=== PATIENT | female | born 1965 | race Caucasian/White ===

== ENCOUNTER → 2017-06-29 | Outpatient (REF) | payer OTHER ==
[2015-12-22 09:28] VITALS: BMI 25.7
[~2017-06-29] MED LIST: ACET-1966 PO; ADV100/50 INH; ALBU8.5H12 IH; ARIP5TAB28 PO; AZE137NAPT NS; BUDE0.5A6 IH; CALC-547 PO; CIT20 PO; CYCL1DRO6 OP; DESO1TAB41 PO; DEXL60CA6 PO; DIA2 PO; DIPH-1 PO; DOXY-179 PO; DUL100/5PT INH; DULO60CA56 PO; EPIN0.3P15 IM; ESTR0.62 PO; ESTR1PAT TD; FLUC150T40 PO; FLUT16SP20 NS; GABA-549 PO; HYDR2TAB4 PO; LEVO-85 PO; LEVO1TAB48 PO; LEVO50TA80 PO; LIB PO; LIDO700A29 TD; LIPA1CAP63 PO; LOR5/325 PO; LORA-630 PO; METH-280 PO; MID PO; MULT-865 PO; MULT9LIQ5 PO; ONDA4TAB PO; ONDA4TAB9 PO; PAN20 PO; PRED-1 PO; PRED20TA6 PO; PRO25 PO; PROM-110 PO; SULF-198 PO; TEST1.25 TOP; TRAM-420 PO; TRAM100T22 PO; TRAZ-156 PO; [UNRECOGNIZED DRUG - OTHER]; flovent inhaler
== END ==
PROVIDERS: ATTEND Family Medicine
DX: R07.0 Pain in throat (principal)
CPT/HCPCS: 87070

== ENCOUNTER 2017-07-09 09:45 | Outpatient (RCR) | payer OTHER ==
[2015-12-22 09:28] VITALS: BMI 25.7
--- NOTE | 2017-05-22 10:55 | PT INITIAL EVALUATION ---
MEDICAL DIAGNOSIS: Achilles Tendonitis of Left Leg TREATMENT DIAGNOSIS: Left Achilles Tendinopathy DATE OF ONSET: 03/22/17 SUBJECTIVE: Sheyla Hathaway (Kate) presents to physical therapy following a 2 month history of Achilles pain and decreased mobility. Pt reported that pain started after she started jogging and doing yoga more and hasn't really got any better since it started. Pain is in the calcaneal tendon and occasionally extends to the bottom of the heel. Pain is rated currently at rest as 3-4/10 but can increase to 7-8/10 with increased activity such as prolonged walking or jogging, yoga, and squatting. Pt reports that pain is better with compression around the ankle like when she wears hiking boots. Pt currently wears orthotics and has for years though reports that she didn't wear them for most of the summer. REHAB PROBLEM LIST: Increased Pain Decreased ROM Decreased Strength Decreased Endurance Decreased Balance Decreased Function Decreased ADL's Decreased Mobility Decreased Gait PREVIOUS MEDICAL HISTORY: See EMR OCCUPATION: athletic instructor OBJECTIVE: Pt has general joint hypermobility with knee hyperextension in static stance. Posture: L foot posture significant for B rear foot valgus (L>R), pronated L mid foot without any presence of arch with WB, and L first digit adduction with bunion formation on MTP joint. ROM: Ankle ROM: DF: L 13, R 30, PF: L 46, R 70, Eversion: L 18, R 35, Inversion, : B 80 degrees. Strength: MMT B Ankles: R 5/5 in all major motions. L: PF/DF: 4/5, Ever/Inv: 3+/ 5 pt unable to hold sustained contraction with pressure. Palpation: Pt is tender to palpation along the medial mid portion Achilles tendon as well as along it's insertion. Small nodule formation is present on mid portion Sensation: Sensation intact to light touch Special Tests: Petersen squeeze test (-) for rupture Mobility: Decreased subtalar mobility on L LE. Gait: Gait significant for decreased push off on L foot with lateral whip for foot clearance. Balance: SLS balance: B 30 seconds each with increased postural sway and foot collapse on L LE. Other Objective Findings: ASSESSMENT: Pt shows signs and symptoms consistent with left Achilles tendinopathy with associated decreased L foot posture. Physical therapy is indicated to correct the above listed deficits to return pt to prior level of function with ADL's and recreational activities. Short Term Goals In 3 weeks pt will increase L ankle ROM to within functional limits for improved mobiltiy with ADL's. In 3 weeks pt will decrease pain to <3/10 with daily ambulation with ADL's. In 6 weeks pt will increase L ankle strength to 5/5 in all major motions for improved function with ADL's and recreational activities. In 6 weeks pt will begin return to running protocol and be independent with HEP for increased functional mobility and prolonged healing with ADL's. Patient's Goals Return to yoga and ADL's without pain and improved motion. PLAN: Patient to be seen for Manual Therapy/STM/MET Strengthening/condition Ice/Heat Range of Motion Ultrasound Stretching Iontophoresis Neuromuscular Re-ed Closed Chain Program Electrical Stim Posture/Body mechanics Gait Trg/Balance Trg Biofeedback Home Exercise Program [facility]./Manual Traction Therapeutic Activities Orthotic eval,cast,adjust 3x/Week for 6 Weeks If you have any questions, comments, or concerns about this report or plan, please contact me at . Thank you, Alicia Gillis, PT, DPT, CLT MTDD
--- NOTE | 2017-07-01 13:33 | PT PLAN OF CARE ---
Physician: Kael Jimenes DO Patient is being seen: 2-3x/Week Therapist: Alicia Gillis, PT, DPT, CLT Medical Diagnosis: Achilles Tendonitis of Left Leg Treatment Diagnosis: Left Achilles Tendinopathy Date of Onset: 03/22/17 Date of Initial Evaluation: 05/22/17 Date patient was last seen: 06/30/17 Number of treatments: 9 Number of cancellations/No shows: 4 INTERVENTIONS: Manual Therapy/STM/MET Strengthening/condition Ice/Heat Range of Motion Ultrasound Stretching Iontophoresis Neuromuscular Re-ed Closed Chain Program Electrical Stim Posture/Body mechanics Gait Trg/Balance Trg Biofeedback Home Exercise Program Mech./Manual Traction Therapeutic Activities Orthotic eval,cast,adjust GOALS: In 3 weeks pt will increase L ankle ROM to within functional limits for improved mobility with ADL's. MET In 3 weeks pt will decrease pain to <3/10 with daily ambulation with ADL's. In 6 weeks pt will increase L ankle strength to 5/5 in all major motions for improved function with ADL's and recreational activities. In 6 weeks pt will begin return to running protocol and be independent with HEP for increased functional mobility and prolonged healing with ADL's. PATIENT'S GOAL: Return to yoga and ADL's without pain and improved motion. 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 However, pt foot posture and mechanics show improvement with good mobility and decreased pain with arch support and corrected hallux valgus. Posture: L foot posture significant for rear foot valgus, pronated mid foot without any presence of arch with WB, and first digit adduction with bunion formation on MTP joint. ROM: Ankle ROM: DF: L 13, R 30, PF: L 46, R 70, Eversion: L 18, R 35, Inversion ,: B 80 degrees. Strength: MMT B Ankles: R 5/5 in all major motions. L: PF/DF: 4/5, Ever/Inv: 3+/ 5 pt unable to hold sustained contraction with pressure. Palpation: Pt is tender to palpation along the medial mid portion Achilles tendon as well as along it's insertion. Special Tests: Petersen squeeze test (-) for rupture If you have any questions or concerns, please feel free to contact me at [phone]. Thank you, Alicia Gillis, PT, DPT, CLT MTDD
--- NOTE | 2017-08-12 10:14 | PT PLAN OF CARE ---
Physician: Kael Jimenes DO Patient is being seen: 2-3x/Week Therapist: Alicia Gillis, PT, DPT, CLT Medical Diagnosis: Achilles Tendonitis of Left Leg Treatment Diagnosis: Left Achilles Tendinopathy Date of Onset: 03/22/17 Date of Initial Evaluation: 05/22/17 Date patient was last seen: 07/11/17 Number of treatments: 13 Number of cancellations/No shows: 6 INTERVENTIONS: Manual Therapy/STM/MET Strengthening/condition Ice/Heat Range of Motion Ultrasound Stretching Iontophoresis Neuromuscular Re-ed Closed Chain Program Electrical Stim Posture/Body mechanics Gait Trg/Balance Trg Biofeedback Home Exercise Program Mech./Manual Traction Therapeutic Activities Orthotic eval,cast,adjust GOALS: In 3 weeks pt will increase L ankle ROM to within functional limits for improved mobility with ADL's. MET In 3 weeks pt will decrease pain to <3/10 with daily ambulation with ADL's. In 6 weeks pt will increase L ankle strength to 5/5 in all major motions for improved function with ADL's and recreational activities. In 6 weeks pt will begin return to running protocol and be independent with HEP for increased functional mobility and prolonged healing with ADL's. PATIENT'S GOAL: Return to yoga and ADL's without pain and improved motion. Status of Patient's Goals: 1/4 Goals MET Patient Compliance: Poor Prognosis: Good Reasons for discharge from therapy: Sheyla is to discharge from physical therapy at this time secondary to poor pt compliance associated with family emergencies and pt preference. At the time of discharge pt had met 1/4 functional goals and was progressing with independent HEP to manage symptoms and progressively load calcaneal tendon. Pt also showed good progress with correction of contributing factors such as decreased strength and poor foot posture with correction decreasing pain status. Pt to continue with independent HEP upon discharge and seek further PT if necessary when personal factors are more conducive. Posture: L foot posture significant for rear foot valgus, pronated mid foot without any presence of arch with WB, and first digit adduction with bunion formation on MTP joint. ROM: Ankle ROM: DF: L 13, R 30, PF: L 46, R 70, Eversion: L 18, R 35, Inversion ,: B 80 degrees. Strength: MMT B Ankles: R 5/5 in all major motions. L: PF/DF: 4/5, Ever/Inv: 4 Palpation: Pt is tender to palpation along the medial mid portion Achilles tendon as well as along it's insertion. Special Tests: Petersen squeeze test (-) for rupture If you have any questions or concerns, please feel free to contact me at [phone]. Thank you, Alicia Gillis, PT, DPT, CLT MTDD
== END 2017-07-09 18:00 | disposition home or self-care (01) ==
LOC: PT 09:45
PROVIDERS: ATTEND Family Medicine
DX: M76.62 Achilles tendinitis, left leg (principal)
CPT/HCPCS: 97162

== ENCOUNTER 2017-08-21 06:23 | Emergency (ER) | payer OTHER ==
[2015-12-22 09:28] VITALS: Wt 68.0 kg
[2017-08-21] MEDS ORDERED: THYR90TA13 PO (06:36)
[2017-08-21 06:57] LABS: PLATELET COUNT, AUTOMATED 397 K/uL (150-450)
--- NOTE | 2017-08-21 07:07 | ER Report ---
History and Physical Time Seen By MD: 07:06 Hx. of Stated Complaint: Pt had surgery on left foot on August 12. Pt feels "weird" today. She started feeling SOB last night and is worried about PE. HPI/ROS CHIEF COMPLAINT: Shortness of breath HISTORY OF PRESENT ILLNESS: Patient is a [age] female who had bunion surgery on August 12 she is now feeling "weird". She is also feeling short of breath that began last evening. Patient has been having shaking ports temperature of 101 at home last evening. She did speak with the on-call orthopedic surgeon who thought she should come to the emergency department for evaluation of possible pulmonary embolism. REVIEW OF SYSTEMS: Constitutional: Shaking, temperature of 101 at home last evening Eyes: No discharge. ENT: No sore throat. Cardiovascular: No chest pain, no palpitations. Respiratory: No cough, no shortness of breath. Gastrointestinal: No abdominal pain, no vomiting. Genitourinary: No hematuria. Musculoskeletal: No back pain. Skin: No rashes. Neurological: No headache. Allergies: Coded Allergies: aspirin (Verified Allergy, Severe, ANAPHYLAXIS, 08/21/17) cefaclor (Verified Allergy, Severe, ANAPHYLAXIS, 08/21/17) ibuprofen (Verified Allergy, Severe, ANAPHYLAXIS, 08/21/17) iron (Verified Allergy, Severe, anaphalaxis by IV, 08/21/17) ketorolac (Verified Allergy, Severe, ANAPHYLAXIS, 08/21/17) montelukast (Verified Allergy, Severe, ANAPHYLAXIS, 08/21/17) warfarin (Verified Allergy, Severe, ANAPHYLAXIS, 08/21/17) latex (Verified Allergy, Intermediate, rash, 08/21/17) morphine (Verified Adverse Reaction, Mild, 08/21/17) Home Meds Active Scripts Tramadol Hcl (TRAMADOL HCL) 50 Mg Tablet, 50-100 MG PO Q6-8H for PAIN, #3 TAB Prov:WALKER GARCIA MD 12/11/15 Promethazine Hcl (PROMETHAZINE HCL) 25 Mg Tablet, 25 MG PO Q6H, #10 TAB Prov:MARQUISE BERMUDEZ NP 09/08/15 Reported Medications Thyroid,Pork (APPLIANCE ASSEMBLER THYROID) 90 Mg Tablet, 90 MG PO QDAY 08/21/17 Duloxetine Hcl (CYMBALTA) 60 Mg Capsule.dr, 60 MG PO QDAY, CAP 2 Refills 12/25/15 TESTOSTERONE 1.62% Topical Gel (ANDROGEL 1.62% Topical Gel) 1.25 Gm Gel.packet, 1 ML TOP 3XW 12/22/15 Epinephrine (EPIPEN 2-FERNY) 0.3 Mg/0.3 Ml Pen.injctr, 0.3 MG IM PRN 12/22/15 Estrogens, Conjugated 0.625 Mg Tab (PREMARIN 0.625 MG TAB) 0.625 Mg Tablet, 0.625 MG PO 3XW 11/10/14 Methocarbamol (METHOCARBAMOL) 750 Mg Tablet, 750 MG PO TID 11/10/14 Estradiol (ESTRADIOL 0.075 MG) 1 Each Patch.tdwk, 1 EACH TD Q7D, PATCH.WK 11/10/14 Mometasone/Formoterol (DULERA 100 MCG/5 MCG INHALER) 13 Gm Inh, 13 GM INH BID Y for SHORTNESS OF BREATH, INH 11/10/14 Dexlansoprazole (DEXILANT) 60 Mg Cap.mp, 60 MG PO QDAY 11/10/14 Fluticasone Propionate (Flonase) 16 Gm [place], 1 ENRRIQUE NS DAILY 03/03/12 Amylase/Lipase/Protease ([place]ar Santos 24,000 Units Capsule) 1 Each Capsule., 1 EACH PO BIDBS 09/20/11 Albuterol Sulfate (Albuterol Sulfate Hfa) 8.5 Gm Hfa.aer.ad, 8.5 GM IH PRN Y for SHORTNESS OF BREATH, 0 Refills 08/07/10 Discontinued Reported Medications Trazodone Hcl (TRAZODONE HCL) 50 Mg Tablet, 25-50 MG PO QHS, 2 Refills 12/25/15 Gabapentin (GABAPENTIN) 300 Mg Capsule, 900 MG PO QHS, CAPSULE 12/22/15 Levothyroxine Sodium (Levothyroxine Sodium) 50 Mcg Tablet, 50 MCG PO DAILY 03/03/12 Discontinued Scripts Budesonide (BUDESONIDE) 0.5 Mg/2 Ml Ampul.neb, 0.5 MG IH DAILY for 30 Days, #30 INH 11 Refills Prov:MARYBETH MIKE JR, MD 06/16/17 Fluconazole (DIFLUCAN) 150 Mg Tablet, 150 MG PO QDAY, #1 TB12 Prov:MARYBETH MIKE JR, MD 04/25/17 Sulfamethoxazole/Trimet 800-160 Mg Tab (BACTRIM DS TABLET) 1 Each Tablet, 1 TAB PO Q12H for 14 Days, #28 TAB Prov:MARYBETH MIKE JR, MD 04/25/17 Prednisone (PREDNISONE) 20 Mg Tablet, 20 MG PO QDAY for 5 Days, #5 TAB Prov:MARYBETH MIKE JR, MD 04/25/17 Past Medical/Surgical History Past medical history for celiac disease, hypothyroidism, fibromyalgia, chronic fatigue syndrome. 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 Appears to be having Reiger's Head: Normocephalic and atraumatic. Eyes: Conjunctival clear, Pupils are equal and reactive to light. Extraocular muscles are intact and symmetrical. Sclera are clear and anicteric. Ears:External canals are clear. Tympanic membranes are clear with normal landmarks and light reflex. Nares: No rhinorrhea or bleeding. Turbinates are pink and moist. Oropharyngeal: Mucous membranes are moist. There is no pharyngeal erythema or exudate. There are no palatal petechiae. Uvula is midline and symmetrical. Neck: Supple, no adenopathy. Cardiovascular: Heart is regular rate and rhythm without audible murmurs, rubs or gallops. Pulmonary: Lungs are clear to auscultation bilaterally. There are no wheezes, rales, or rhonchi. Chest rise is symmetrical Abdomen: Soft, nontender, no guarding or peritoneal signs. Extremities: No gross deformities, No peripheral cyanosis. The surgical dressing on the left lower extremity was removed completely. Wound appears clean dry and intact there is no evidence of bleeding no purulent discharge no evidence of cellulitis. Neuro: Alert and oriented X3, Skin: No rashes, skin is warm dry and well perfused. Medical Decision Making Data Points Result Diagram: 08/21/17 0640 08/21/17 0640 Laboratory Hematology Test 08/21/17 06:40 08/21/17 06:55 Red Blood Count 4.76 M/uL (4.17-5.56) Mean Corpuscular Volume 84.8 fL (80.0-96.0) Mean Corpuscular Hemoglobin 28.9 pg (26.0-33.0) Mean Corpuscular Hemoglobin Concent 34.0 g/dL (32.0-36.0) Red Cell Distribution Width 13.2 % (11.5-14.5) Mean Platelet Volume 7.2 fL (7.2-11.1) Neutrophils (%) (Auto) 71.4 % (39.4-72.5) Lymphocytes (%) (Auto) 15.1 % (17.6-49.6) Monocytes (%) (Auto) 10.4 % (4.1-12.4) Eosinophils (%) (Auto) 2.0 % (0.4-6.7) Basophils (%) (Auto) 1.1 % (0.3-1.4) Nucleated RBC Relative Count (auto) 0.0 /100WBC Neutrophils # (Auto) 5.5 K/uL (2.0-7.4) Lymphocytes # (Auto) 1.2 K/uL (1.3-3.6) Monocytes # (Auto) 0.8 K/uL (0.3-1.0) Eosinophils # (Auto) 0.2 K/uL (0.0-0.5) Basophils # (Auto) 0.1 K/uL (0.0-0.1) Nucleated RBC Absolute Count (auto) 0.00 K/uL D-Dimer Quantitative (PE/DVT) 0.73 ug/ml (0-0.50) Sodium Level 132 mmol/L (137-145) Potassium Level 3.7 mmol/L (3.5-5.0) Chloride Level 99 mmol/L (98-107) Carbon Dioxide Level 22 mmol/L (22-31) Blood Urea Nitrogen 10 mg/dl (7-18) Creatinine 0.80 mg/dl (0.52-1.04) Glomerular Filtration Rate Calc > 60.0 Random Glucose 95 mg/dl (75-110) Calcium Level 8.9 mg/dl (8.4-10.2) Total Bilirubin 0.5 mg/dl (0.2-1.3) Aspartate Amino Transf (AST/SGOT) 109 U/L (0-35) Alanine Aminotransferase (ALT/SGPT) 100 U/L (0-56) Alkaline Phosphatase 129 U/L (0-126) Troponin I < 0.012 ng/ml Total Protein 7.1 gm/dl (6.3-8.2) Albumin 3.9 g/dl (3.5-5.0) Urine Color Straw Urine Clarity Clear Urine pH 7.0 pH (4.8-9.5) Urine Specific [place] 1.005 Urine Protein Negative mg/dL (NEGATIVE) Urine Glucose (UA) Negative mg/dL (NEGATIVE) Urine Ketones Negative mg/dL (NEGATIVE) Urine Blood Negative (NEGATIVE) Urine Nitrite Negative (NEGATIVE) Urine Bilirubin Negative (NEGATIVE) Urine Urobilinogen Negative mg/dL (0.2-1.9) Urine Leukocyte Esterase Negative (NEGATIVE) Urine RBC <1 /HPF (0-2/HPF) Urine WBC None /HPF (0-5/HPF) Urine Squamous Epithelial Cells Many /LPF (</=FEW) Urine Bacteria Few /HPF (NONE-FEW) Urine Mucus None /HPF (NONE-FEW) Chemistry Test 08/21/17 06:40 08/21/17 06:55 White Blood Count 7.7 k/uL (4.5-11.0) Red Blood Count 4.76 M/uL (4.17-5.56) Hemoglobin 13.7 g/dL (12.0-16.0) Hematocrit 40.3 % (34.0-47.0) Mean Corpuscular Volume 84.8 fL (80.0-96.0) Mean Corpuscular Hemoglobin 28.9 pg (26.0-33.0) Mean Corpuscular Hemoglobin Concent 34.0 g/dL (32.0-36.0) Red Cell Distribution Width 13.2 % (11.5-14.5) Platelet Count 397 K/uL (150-450) Mean Platelet Volume 7.2 fL (7.2-11.1) Neutrophils (%) (Auto) 71.4 % (39.4-72.5) Lymphocytes (%) (Auto) 15.1 % (17.6-49.6) Monocytes (%) (Auto) 10.4 % (4.1-12.4) Eosinophils (%) (Auto) 2.0 % (0.4-6.7) Basophils (%) (Auto) 1.1 % (0.3-1.4) Nucleated RBC Relative Count (auto) 0.0 /100WBC Neutrophils # (Auto) 5.5 K/uL (2.0-7.4) Lymphocytes # (Auto) 1.2 K/uL (1.3-3.6) Monocytes # (Auto) 0.8 K/uL (0.3-1.0) Eosinophils # (Auto) 0.2 K/uL (0.0-0.5) Basophils # (Auto) 0.1 K/uL (0.0-0.1) Nucleated RBC Absolute Count (auto) 0.00 K/uL D-Dimer Quantitative (PE/DVT) 0.73 ug/ml (0-0.50) Glomerular Filtration Rate Calc > 60.0 Calcium Level 8.9 mg/dl (8.4-10.2) Total Bilirubin 0.5 mg/dl (0.2-1.3) Aspartate Amino Transf (AST/SGOT) 109 U/L (0-35) Alanine Aminotransferase (ALT/SGPT) 100 U/L (0-56) Alkaline Phosphatase 129 U/L (0-126) Troponin I < 0.012 ng/ml Total Protein 7.1 gm/dl (6.3-8.2) Albumin 3.9 g/dl (3.5-5.0) Urine Color Straw Urine Clarity Clear Urine pH 7.0 pH (4.8-9.5) Urine Specific [place] 1.005 Urine Protein Negative mg/dL (NEGATIVE) Urine Glucose (UA) Negative mg/dL (NEGATIVE) Urine Ketones Negative mg/dL (NEGATIVE) Urine Blood Negative (NEGATIVE) Urine Nitrite Negative (NEGATIVE) Urine Bilirubin Negative (NEGATIVE) Urine Urobilinogen Negative mg/dL (0.2-1.9) Urine Leukocyte Esterase Negative (NEGATIVE) Urine RBC <1 /HPF (0-2/HPF) Urine WBC None /HPF (0-5/HPF) Urine Squamous Epithelial Cells Many /LPF (</=FEW) Urine Bacteria Few /HPF (NONE-FEW) Urine Mucus None /HPF (NONE-FEW) Coagulation Test 08/21/17 06:40 D-Dimer Quantitative (PE/DVT) 0.73 ug/ml Urinalysis Test 08/21/17 06:55 Urine Color Straw Urine Clarity Clear Urine pH 7.0 pH (4.8-9.5) Urine Specific [place] 1.005 Urine Protein Negative mg/dL (NEGATIVE) Urine Glucose (UA) Negative mg/dL (NEGATIVE) Urine Ketones Negative mg/dL (NEGATIVE) Urine Blood Negative (NEGATIVE) Urine Nitrite Negative (NEGATIVE) Urine Bilirubin Negative (NEGATIVE) Urine Urobilinogen Negative mg/dL (0.2-1.9) Urine Leukocyte Esterase Negative (NEGATIVE) Urine RBC <1 /HPF (0-2/HPF) Urine WBC None /HPF (0-5/HPF) Urine Squamous Epithelial Cells Many /LPF (</=FEW) Urine Bacteria Few /HPF (NONE-FEW) Urine Mucus None /HPF (NONE-FEW) EKG/Imaging EKG Interpretation EKG shows normal sinus rhythm with ventricular rate of [address]. [address] segment or T-wave abnormalities Monitor Interpretation: Normal Sinus Rhythm Imaging [place]AC[place] [facility] [place]IENT NAME: Sheyla Hathaway : 1965 MR: [id number] V: [id number] EXAM DATE: ORDERING PHYSICIAN: RIVER LOVETT TECHNOLOGIST: Location: [facility] Patient: Sheyla Hathaway : 1965 Visit/Account:[id number] Date of Sevice: 08/21/2017 Technique: CHEST PA AND LAT HISTORY: short of breath COMPARISON: Chest radiograph report December 11, 2015 Findings: The lungs are clear. No pleural effusion or pneumothorax. The cardiomediastinal silhouette is unremarkable. Impression: 1. No acute cardiopulmonary process. Report Dictated By: Matt Oneill DO at 08/21/2017 8:16 AM Report E-Signed By: Matt Oneill DO at 08/21/2017 8:18 AM WSN:[id number] [place] [facility] [place]IENT NAME: Sheyla Hathaway : 1965 MR: [id number] V: [id number] EXAM DATE: ORDERING PHYSICIAN: JANNET SMITH TECHNOLOGIST: Location: [facility] Patient: Sheyla Hathaway : 1965 Visit/Account:[id number] Date of Sevice: 08/21/2017 EXAMINATION: CT CHEST PULMONARY ANGIOGRAM COMPARISON: None available HISTORY: Shortness of breath. Recent surgery. PROCEDURE: Pulmonary arterial phase imaging of the chest with 75 mL intravenous Isovue 370. Reconstruction of the source data set includes multiplanar 2D in the sagittal and coronal planes, and 3D reconstructed coronal slab MIP series. One of the following dose optimization techniques was utilized in the performance of this exam: Automated exposure control; adjustment of the mA and/ or kV according to the patient's size; or use of an iterative reconstruction technique. Specific details can be referenced in the facility's radiology CT exam operational policy. FINDINGS: Pulmonary vasculature: There is good contrast opacification of the pulmonary arterial system. No pulmonary embolism. Main pulmonary artery size is normal. Cardiac and mediastinum: Cardiac chamber size is normal. No pericardial effusion. No thoracic aortic aneurysm. No thoracic lymph node enlargement. Small hiatal hernia. Lungs and pleura: No focal consolidation or pulmonary nodule. No pneumothorax, pulmonary edema, or pleural effusion. Airways: The central airways are patent. Upper abdomen: Cholecystectomy. Pneumobilia. Osseous structures: Negative. IMPRESSION: 1. No pulmonary embolism or evidence of acute cardiopulmonary disease. 2. Small hiatal hernia. 3. Cholecystectomy and pneumobilia. Unless there is a clinical concern for acute hepatobiliary disease, pneumobilia is likely related to prior instrumentation. Report Dictated By: Anton Crabtree MD at 08/21/2017 8:31 AM Report E-Signed By: Anton Crabtree MD at 08/21/2017 8:44 AM WSN:[id number] ED Course/Re-evaluation Clinical Indication for ER IV: Hydration, IV Access ED Course 08/21/2017 7:37:32 am patient with complaint of shortness of breath. Temperature in the department was 99. Patient does appear to be having some Reiger's. Plan will be blood cultures urine culture, chest x-ray patient are he had a blood work put in for a troponin which is negative d-dimer which is elevated at 0.72. This could be secondary to the patient's recent surgery but also does raise the possibility of pulmonary embolism. Plan at this time will be CT scan to rule out possible pulmonary emboli. 08/21/2017 8:21:04 am the patient's prior bulky Prabhakar dressing was replaced along with a posterior and sugar tong splint Re-evaluation 08/21/2017 9:25:[address] Zarate regarding outpatient work up in the emergency department negative for all signs of infection at this time. Urinalysis is unremarkable chest x-ray was clear surgical incisions look clean dry and intact. Patient's bulky Prabhakar dressing was replaced. Dr. Zarate agrees with that no treatment other than observation at this time and follow up with Dr. Prasad as scheduled Decision to Disposition Date: Aug 21, 2017 Decision to Disposition Time: 09:26 Depart Departure Latest Vital Signs Vital Signs Date Time Temp Pulse Resp B/P (MAP) Pulse Ox O2 Delivery O2 Flow Rate FiO2 08/21/17 09:30 117/87 (97) 08/21/17 09:00 100 89 08/21/17 07:21 99.0 08/21/17 06:30 16 Room Air Impression: Primary Impression: Dyspnea Condition: Improved Referrals: CARLOS TIWARI MD (PCP) Patient Instructions: Dyspnea (ED) Additional Instructions: Follow-up as scheduled with Dr. Prasad; follow up sooner if her symptoms persist or worsen at any time. Problem Qualifiers Primary Impression: Dyspnea Dyspnea type: unspecified Qualified Codes: R06.00 - Dyspnea, unspecified JANNET SMITH MD Aug 21, 2017 07:07
--- NOTE | 2017-08-21 07:08 | EKG ---
FACILITY: [facility] [place] PATIENT NAME: EUGENIE VARGAS : [id number] MR: [id number] V: [id number] EXAM DATE: ORDERING PHYSICIAN: RIVER LOVETT TECHNOLOGIST: JOSE Lopes Reason : SOB Blood Pressure : / mmHG Vent. Rate : 095 BPM Atrial Rate : 095 BPM P-R Int : 120 ms QRS Dur : 090 ms QT Int : 372 ms P-R-T Axes : 035 039 047 degrees QTc Int : 467 ms Normal sinus rhythm Cannot rule out Anterior infarct , age undetermined Abnormal ECG When compared with ECG of 11-DEC-2015 18:53, No significant change was found Confirmed by ANN MARIE NGUYEN ([id number]) on 08/21/2017 8:12:45 AM Referred By: BONY Confirmed By:ANN MARIE NGUYEN
[2017-08-21] MEDS ORDERED: LORazepam 2 MG/ML VIAL IVP ONE (07:35)
[2017-08-21] MEDS ORDERED: IOPAMIDOL 76% 75 ML INFUS BTL 75 ML ONE (07:54)
[2017-08-21] MEDS ORDERED: NS 0.9% 150 ML BAG 150 ML ONE (07:54)
--- NOTE | 2017-08-21 08:22 | RADIOLOGY IMAGING REPORT ---
FACILITY: [facility] PATIENT NAME: Sheyla Hathaway : 1965 MR: [id number] V: [id number] EXAM DATE: ORDERING PHYSICIAN: RIVER LOVETT TECHNOLOGIST: Location: [facility] [place] Patient: Sheyla Hathaway : 1965 Visit/Account:[id number] Date of Sevice: 08/21/2017 Technique: CHEST PA AND LAT HISTORY: short of breath COMPARISON: Chest radiograph report December 11, 2015 Findings: The lungs are clear. No pleural effusion or pneumothorax. The cardiomediastinal silhouett e is unremarkable. Impression: 1. No acute cardiopulmonary process. Report Dictated By: Matt Oneill DO at 08/21/2017 8:16 AM Report E-Signed By: Matt Oneill DO at 08/21/2017 8:18 AM WSN:[id number]
--- NOTE | 2017-08-21 08:50 | RADIOLOGY IMAGING REPORT ---
FACILITY: [facility] - [place] PATIENT NAME: Sheyla Hathaway : 1965 MR: [id number] V: [id number] EXAM DATE: ORDERING PHYSICIAN: JANNET SMITH TECHNOLOGIST: Location: [facility] [place] Patient: Sheyla Hathaway : 1965 Visit/Account:[id number] Date of Sevice: 08/21/2017 EXAMINATION: CT CHEST PULMONARY ANGIOGRAM COMPARISON: None available HISTORY: Shortness of breath. Recent surgery. PROCEDURE: Pulmonary arterial phase imaging of the chest with 75 mL intravenous Isovue 370. Reconstru ction of the source data set includes multiplanar 2D in the sagittal and coronal planes, and 3D recon structed coronal slab MIP series. One of the following dose optimization techniques was utilized in the performance of this exam: Autom ated exposure control; adjustment of the mA and/or kV according to the patient's size; or use of an i terative reconstruction technique. Specific details can be referenced in the facility's radiology C T exam operational policy. FINDINGS: Pulmonary vasculature: There is good contrast opacification of the pulmonary arterial system. No pul monary embolism. Main pulmonary artery size is normal. Cardiac and mediastinum: Cardiac chamber size is normal. No pericardial effusion. No thoracic aorti c aneurysm. No thoracic lymph node enlargement. Small hiatal hernia. Lungs and pleura: No focal consolidation or pulmonary nodule. No pneumothorax, pulmonary edema, or pl eural effusion. Airways: The central airways are patent. Upper abdomen: Cholecystectomy. Pneumobilia. Osseous structures: Negative. IMPRESSION: 1. No pulmonary embolism or evidence of acute cardiopulmonary disease. 2. Small hiatal hernia. 3. Cholecystectomy and pneumobilia. Unless there is a clinical concern for acute hepatobiliary diseas e, pneumobilia is likely related to prior instrumentation. Report Dictated By: Anton Crabtree MD at 08/21/2017 8:31 AM Report E-Signed By: Anton Crabtree MD at 08/21/2017 8:44 AM WSN:[id number]
[2017-08-21 09:30] VITALS: BP 117/87
== END 2017-08-21 09:30 | disposition home or self-care (01) ==
LOC: ER 06:39
DX: R06.02 Shortness of breath (principal)
CPT/HCPCS: 29515; 36415; 71046; 71275; 81001; 84484; 85025; 85379; 87040; 87088; 93005; 96374; 99284; J2060; Q9967; 82040; 82247; 82310; 82374; 82435; 82565; 82947; 84075; 84132; 84155; 84295; 84450; 84460; 84520

== ENCOUNTER → 2017-09-03 | Outpatient (CLI) | payer OTHER ==
[2015-12-22 09:28] VITALS: BMI 25.7
[~2017-09-03] MED LIST changes: +THYR90TA13 PO
[2017-09-03 16:29] LABS: PLATELET COUNT, AUTOMATED 433 K/uL (150-450)
== END ==
LOC: LAB 16:15
PROVIDERS: ATTEND Internal Medicine
DX: J45.50 Severe persistent asthma, uncomplicated (principal)
CPT/HCPCS: 36415; 82785; 85025

== ENCOUNTER → 2017-11-24 | Outpatient (CLI) | payer OTHER ==
[2015-12-22 09:28] VITALS: BMI 25.7
== END ==
LOC: LAB 11:12
PROVIDERS: ATTEND Internal Medicine
DX: G25.81 Restless legs syndrome (principal)
CPT/HCPCS: 36415; 82728; 83540; 83550

== ENCOUNTER → 2018-01-06 | Outpatient (REF) | payer OTHER ==
[2015-12-22 09:28] VITALS: BMI 25.7
[~2018-01-06] MED LIST changes: -TRAZ-156 PO; +TRAZ50TA34 PO
== END ==
LOC: ZZSENDIN 17:12
PROVIDERS: ATTEND Physician Assistant
DX: R10.13 Epigastric pain (principal)
CPT/HCPCS: 82150; 82274; 83540; 83630; 83690; 87338

== ENCOUNTER 2018-01-19 15:30 | Outpatient (RCR) | payer OTHER ==
[2015-12-22 09:28] VITALS: BMI 25.7
--- NOTE | 2017-12-25 15:13 | PT INITIAL EVALUATION ---
MEDICAL DIAGNOSIS: Left Rib Pain TREATMENT DIAGNOSIS: Left Rib Pain and Thoracic Pain DATE OF ONSET: 12/25/17 SUBJECTIVE: Pt reports that this morning when she woke up she suddenly had L lateral rib pain and thoracic spine pain that is really sharp and intense. She thinks she has a rib out of place because that is what it felt like last time it happened. Pt does not rate pain but describes it as both dull and sharp at times and a constant ache. Pain is located from T4-7 and then moves L laterally around the side to the sternum in the front. REHAB PROBLEM LIST: Increased Pain Decreased ROM Decreased Strength Decreased Function Decreased ADL's Decreased Mobility PREVIOUS MEDICAL HISTORY: See EMR OBJECTIVE: ROM: Thoracic ROM: Flexion: increased pain into neck but full ROM, ext: pain throughout but full, L rot: full ROM with increased pain in side, R rot: minimally decreased with pain more in the back of the L side. Palpation: Decreased thoracic mobility throughout with tenderness along rib 5 and posteriorly on rib 6 on the L side with posterior translation of each palpable. Mobility: Repeated thoracic functional screen: flexion & L rotation: increased pain throughout and peripheralization to cervical spine and shoulder, ext: increased pain throughout, R rotation: centralized to T5 level only, but pain moved to both sides in the back. ASSESSMENT: Pt shows signs and symptoms consistent with thoracic and rib dysfunction with muscular guarding. Physical therapy is indicated to address the above listed deficits to improve functional mobility with ADL's. Short Term Goals In 2 weeks pt will centralize thoracic pain to the spine only for improved function with ADL's. In 4 weeks pt will decrease L sided thoracic pain to 0/10 with ADL's. In 4 weeks pt will improve thoracic mobility to full without pain for improved function with ADL's. Patient's Goals Decrease pain. PLAN: Patient to be seen for Manual Therapy/STM/MET Strengthening/condition Ice/Heat Range of Motion Spinal Stabilization Stretching Neuromuscular Re-ed Electrical Stim Posture/Body mechanics Home Exercise Program Mech./Manual Traction Therapeutic Activities 2x/Week for 4 Weeks If you have any questions, comments, or concerns about this report or plan, please contact me at . Thank you, Alicia Gillis, PT, DPT, CLT GABRIELE
== END 2018-01-19 18:00 | disposition home or self-care (01) ==
LOC: PT 15:30
PROVIDERS: ATTEND Family Medicine
DX: R07.81 Pleurodynia (principal); M54.6 Pain in thoracic spine
CPT/HCPCS: 97161

== ENCOUNTER → 2018-03-03 | Outpatient (CLI) | payer OTHER ==
[2015-12-22 09:28] VITALS: BMI 25.7
--- NOTE | 2018-03-03 14:08 | RADIOLOGY IMAGING REPORT ---
FACILITY: [facility] PATIENT NAME: Sheyla Hathaway : 1965 MR: [id number] V: [id number] EXAM DATE: ORDERING PHYSICIAN: ANI PATTON TECHNOLOGIST: Location: [facility] [place] Patient: Sheyla Hathaway : 1965 Visit/Account:[id number] Date of Sevice: 03/03/2018 EXAMINATION: CT sinus without IV contrast HISTORY: Acute maxillary sinusitis. Migraines. COMPARISON: Sinus CT from 05/05/2017. TECHNIQUE: Contiguous axial images were obtained through the paranasal sinuses without intravenous c ontrast administration. Coronal and sagittal reformatted images were obtained from the axial source d ck. One of the following dose optimization techniques was utilized in the performance of this exam: Autom ated exposure control; adjustment of the mA and/or kV according to the patient's size; or use of an i terative reconstruction technique. Specific details can be referenced in the facility's radiology C T exam operational policy. FINDINGS: Maxillary sinuses: Bilateral maxillary antrostomies and uncinectomies. Mild mucosal thickening in th e left maxillary sinus, slightly worse. Frontal sinuses: Right frontal sinus is hypoplastic. The frontal sinuses are clear. Ethmoid air cells: Bilateral ethmoidectomies with minimal mucosal thickening in the bilateral ethmoid region. Sphenoid sinuses: The left sphenoid sinus is larger than the right, which is a normal variant. Widen ing of both sphenoethmoidal recesses with minimal mucosal thickening, slightly improved. Ostiomeatal units: Patent. Nasal septum/nasal cavity: Previous septoplasty, bilateral middle turbinectomies and partial right cerna perior turbinectomy. Orbits: Negative. Visualized intracranial contents/soft tissues: Negative. TMJs: Negative. IMPRESSION: 1. Extensive surgical changes are similar to previous exam. There is previous septoplasty, bilatera l middle turbinectomies, partial right superior turbinectomy, bilateral maxillary antrostomies and un cinectomies, bilateral ethmoidectomies, and widening of both sphenoethmoidal recesses. 2. Mild nonobstructive inflammation of the bilateral ethmoid region and sphenoid sinuses, and the le ft maxillary sinus. This is slightly worse in the left maxillary sinus from prior exam. Report Dictated By: Xiomy Becerra MD at 03/03/2018 1:59 PM Report E-Signed By: Xiomy Becerra MD at 03/03/2018 2:03 PM WSN:[id number]
--- NOTE | 2018-03-03 14:11 | RADIOLOGY IMAGING REPORT ---
FACILITY: [facility] - [place] PATIENT NAME: Sheyla Hathaway : 1965 MR: [id number] V: [id number] EXAM DATE: ORDERING PHYSICIAN: ANI PATTON TECHNOLOGIST: Location: [facility] Patient: Sheyla Hathaway : 1965 Visit/Account:[id number] Date of Sevice: 03/03/2018 Exam type: THYROID History: Hypothyroidism COMPARISON: None. FINDINGS: SIZE: Normal. Right lobe: 3.9 x 0.9 x 0.7 cm Left lobe: 3.8 x 0.8 x 0.9 cm Isthmus: 1 mm PARENCHYMA: Homogeneous. NODULES: Right lobe: * None discrete. Left lobe: * None discrete. Isthmus: * None discrete. VASCULARITY: Within normal limits. ADDITIONAL FINDINGS: None. IMPRESSION: Unremarkable thyroid ultrasound REFERENCE: 2015 [place] [employer] Management Guidelines for Adult Patients with Thyroid Nodules and D ifferentiated Thyroid Cancer: The [place] [employer] Guidelines Task Force on Thyroid Nodul es and Differentiated Thyroid Cancer. SONOGRAPHIC PATTERNS: * Benign: Purely cystic nodules (no solid component); estimated risk of malignancy <1 percent; no bi opsy recommended. * Very Low Suspicion: Spongiform or partially cystic nodules without any of the sonographic features described in low, intermediate, or high suspicion patterns; estimated risk of malignancy <3 percent; consider FNA at > 2 cm (Observation without FNA is also a reasonable option). * Low Suspicion: Isoechoic or hyperechoic solid nodule, or partially cystic nodule with eccentric so lid areas, without microcalcification, irregular margin or ETE (extra-thyroidal extension), or taller than wide shape; estimated risk of malignancy 5-10 percent; recommend FNA at >1.5 cm. * Intermediate Suspicion: Hypoechoic solid nodule with smooth margins without microcalcifications, E TE (extra-thyroidal extension), or taller than wide shape; estimated risk of malignancy 10-20 percent ; recommend FNA at > 1 cm. * High Suspicion: Solid hypoechoic nodule or solid hypoechoic component of a partially cystic nodule with one or more of the following features: irregular margins (infiltrative, microlobulated), microc alcifications, taller than wide shape, rim calcifications with small extrusive soft tissue component, evidence of ETE (extra-thyroidal extension); estimated risk of malignancy >70-90 percent; recommend FNA at > 1 cm. NOTES: * Although a sonographically suspicious subcentimeter thyroid nodule without evidence of extrathyroi venancio extension or sonographically suspicious lymph nodes may be observed with close sonographic follow -up rather than pursuing immediate FNA, patient age and preference may modify decision-making. A > 50% interval increase in nodule volume and/or development of new suspicious sonographic features are felt to be a valid reasons for potential re-aspiration of a nodule previously shown to have benig n FNA cytology.. 1. Report Dictated By: Ewa Ballard MD at 03/03/2018 2:02 PM Report E-Signed By: Ewa Ballard MD at 03/03/2018 2:06 PM WSN:[email or web address]
== END ==
LOC: CT 02-26 00:27 → US 00:56
PROVIDERS: ATTEND Family Medicine
DX: J01.00 Acute maxillary sinusitis, unspecified (principal); E03.9 Hypothyroidism, unspecified
CPT/HCPCS: 70486; 76536

== ENCOUNTER → 2018-03-09 | Outpatient (CLI) | payer OTHER ==
[2015-12-22 09:28] VITALS: BMI 25.7
--- NOTE | 2018-03-09 12:07 | RADIOLOGY IMAGING REPORT ---
[facility] PATIENT NAME: Sheyla Hathaway : 1965 MR: [id number] V: [id number] EXAM DATE: ORDERING PHYSICIAN: FAIZAN ADKINS TECHNOLOGIST: Location: [facility] Patient: Sheyla Hathaway : 1965 Visit/Account:[id number] Date of Sevice: 03/09/2018 EXAMINATION: MRI Brain without intravenous contrast HISTORY: Migraine. COMPARISON: Sinus CT dated 05/05/2017. TECHNIQUE: Multi-planar, multi-sequence brain MRI was performed without IV contrast administration. FINDINGS: Brain volume: Normal. Sagittal midline structures: Negative. Ventricles: Negative. Acute ischemic changes: None. Hemorrhage: None. Masses / edema: None. López-white: Negative. White matter: Two nonspecific white matter lesions in the right parietal lobe (series 5, image 15) a nd right frontal lobe (series 5, image 13) without restricted diffusion. Vessels: Negative. Extra-axial: Negative. Calvarium / scalp: Negative. Skull base: Negative. Visualized sinuses / orbits: Mild mucosal thickening in the left sphenoid sinus. Mild secretions ve rsus small cyst or polyp in left maxillary sinus. Similar compared to the recent sinus CT. Visualized upper neck: Negative. IMPRESSION: 1. No acute intracranial abnormality or mass. 2. Two nonspecific white matter lesions in the right parietal lobe (series 5, image 15) and right fr ontal lobe (series 5, image 13) without restricted diffusion. This may be related to the patient's h istory of migraine. Alternative considerations include chronic ischemia, demyelinating disease, and sequela of prior infection/inflammation/trauma. Report Dictated By: Devan Cardona MD at 03/09/2018 11:57 AM Report E-Signed By: Devan Cardona MD at 03/09/2018 12:03 PM WSN:[id number]
== END ==
LOC: MRI 00:30
PROVIDERS: ATTEND Neurological Surgery
DX: R90.82 White matter disease, unspecified (principal)
CPT/HCPCS: 70551

== ENCOUNTER → 2018-03-23 | Outpatient (CLI) | payer OTHER ==
[2015-12-22 09:28] VITALS: BMI 25.7
--- NOTE | 2018-03-23 16:34 | EKG ---
FACILITY: [facility] - [place] PATIENT NAME: EUGENIE VARGAS : [id number] MR: [id number] V: [id number] EXAM DATE: ORDERING PHYSICIAN: ANN MARIE NGUYEN TECHNOLOGIST: Test Reason : migraine w/ aura Blood Pressure : / mmHG Vent. Rate : 079 BPM Atrial Rate : 079 BPM P-R Int : 136 ms QRS Dur : 090 ms QT Int : 384 ms P-R-T Axes : 060 046 049 degrees QTc Int : 440 ms Normal sinus rhythm Normal ECG When compared with ECG of 21-AUG-2017 06:56, No significant change was found Confirmed by Michael Lopez ([id number]) on 03/23/2018 6:46:19 PM Referred By: Confirmed By:Michael Ferrari
== END ==
LOC: RESP 16:17
PROVIDERS: ATTEND Neurological Surgery
DX: G43.909 Migraine, unspecified, not intractable, without status migrainosus (principal)
CPT/HCPCS: 93005

== ENCOUNTER → 2018-04-11 | Outpatient (CLI) | payer OTHER ==
[2015-12-22 09:28] VITALS: BMI 25.7
[2018-04-11 07:53] LABS: PLATELET COUNT, AUTOMATED 402 K/uL (150-450)
== END ==
LOC: LAB 07:32
PROVIDERS: ATTEND Internal Medicine
DX: J45.50 Severe persistent asthma, uncomplicated (principal)
CPT/HCPCS: 36415; 82785; 85025

== ENCOUNTER → 2018-04-22 | Outpatient (CLI) | payer OTHER ==
[2015-12-22 09:28] VITALS: BMI 25.7
== END ==
LOC: LAB 07:16
PROVIDERS: ATTEND Internal Medicine
DX: G25.81 Restless legs syndrome (principal)
CPT/HCPCS: 36415; 82728; 83550

== ENCOUNTER → 2018-05-04 | Outpatient (REF) | payer OTHER ==
[2015-12-22 09:28] VITALS: BMI 25.7
== END ==
LOC: ZZSENDIN 12:00
PROVIDERS: ATTEND Family Medicine
DX: L72.0 Epidermal cyst (principal)
CPT/HCPCS: 88305

== ENCOUNTER → 2018-05-19 | Outpatient (CLI) | payer OTHER ==
[2015-12-22 09:28] VITALS: BMI 25.7
--- NOTE | 2018-05-19 15:38 | RADIOLOGY IMAGING REPORT ---
FACILITY: [facility] PATIENT NAME: Sheyla Hathaway : 1965 MR: [id number] V: [id number] EXAM DATE: ORDERING PHYSICIAN: KYLE MELÉNDEZ TECHNOLOGIST: Location: [facility] [place] Patient: Sheyla Hathaway : 1965 Visit/Account:[id number] Date of Sevice: 05/19/2018 BONE MINERAL DENSITY Provided history: Osteoporosis screening. Right thumb bone weakness/soft Additional pertinent history: none COMPARISON STUDIES: 01/20/13 FINDINGS: LUMBAR SPINE: The bone mineral density (BMD) measured from [ L1-L4 ] correlates with a Z-score of -0.7 and a T-sco re of -1.3 which is consistent with mild osteopenia as defined by the World Health Organization. The corresponding risk of fracture in the lumbar spine is increased 2.5 times compared with a young adult reference population. This value has increased by 4.0% since the prior study. More than 5% change is considered significan t. RIGHT HIP: Total hip region - Z-score 0.4 , T-score -0.1 Femoral neck - Z-score 0.6 , T-score -0.3. The lower of the two measurements is normal as defined by the World Health Organization. The corresp onding risk of fracture in the hip is not substantially increased compared with a young adult refer ence population. No previous right hip for comparison. RIGHT FOREARM: Bone mineral density (BMD) measured in the ULTRADISTAL right forearm, where cancellous bone predomi nates, correlates with a Z-score of -1.0 and a T-score of -1.4 which is consistent with mild osteop enia as defined by the World Health Organization. The corresponding risk of fracture in the forearm is increased 2.8 times compared with a young adult reference population. Bone mineral density (BMD) measured in the MIDSHAFT right forearm, where cortical bone predominates , correlates with a Z-score of 0.0 and a T-score of -0.4 which is normal as defined by the World H ealth Organization. The corresponding risk of fracture in the forearm is not substantially increased compared with a young adult reference population. No previous right forearm for comparison. IMPRESSION: 1. Lumbar spine: consistent with mild osteopenia, statistically stable from most recent exam but wit h a strong trend toward increasing density. 2. RIGHT Hip: normal, no comparison study 3. RIGHT Forearm: consistent with mild osteopenia, no comparison study RIGHT Femoral Neck: Bone Mineral Density is 1.00 to g/cm2 FRAX WHO Fracture Risk Assessment Tool link: http://www.dimitri.ac.uk/FRAX/index.jsp The next DEXA scan of this patient should include the following sites: L1 - L4, RIGHT HIP, RIGHT FOREARM PLEASE NOTE: 1. The World Health Organization defines low BMD as follows: T-score Normal > -1 Osteopenia -1 to -2.5 Osteoporosis < -2.5 without fractures Established osteoporosis < -2.5 with fractures 2. In general, you may wish to consider: Diagnosis Treatment Follow-up DEXA Normal BMD Prevention 2-3 years Osteopenia Prevention/therapy 1-2 years Osteoporosis Therapy Yearly 3. Fracture risk estimated from the T-score is more accurate for vertebral fractures (often spontaneo us) than for hip fractures. Report Dictated By: John Phillips MD at 05/19/2018 3:22 PM Report E-Signed By: John Phillips MD at 05/19/2018 3:34 PM WSN:[email or web address]
== END ==
LOC: RAD 00:21
PROVIDERS: ATTEND Orthopaedic Surgery Hand Surgery
DX: Z13.820 Encounter for screening for osteoporosis (principal); M85.80 Other specified disorders of bone density and structure, unspecified site
CPT/HCPCS: 77080

== ENCOUNTER → 2018-07-10 | Outpatient (CLI) | payer OTHER ==
[2015-12-22 09:28] VITALS: BMI 25.7
== END ==
LOC: LAB 09:19
PROVIDERS: ATTEND Internal Medicine
DX: J45.40 Moderate persistent asthma, uncomplicated (principal); J30.81 Allergic rhinitis due to animal (cat) (dog) hair and dander; G25.81 Restless legs syndrome
CPT/HCPCS: 36415; 82728; 83540; 83550

== ENCOUNTER 2018-09-30 12:54 | Outpatient (RCR) | payer OTHER ==
[2015-12-22 09:28] VITALS: Wt 74.3 kg
[2018-08-05 14:44] VITALS: BP 134/84
--- NOTE | 2018-08-06 04:50 | ONCOLOGY HISTORY AND PHYSICAL ---
EVENT DATE: August 05, 2018 REFERRING PROVIDER Sekou Robles MD, [employer] Room Operator, [facility], [place], [place]. REASON FOR CONSULTATION Concern for iron deficiency, restless legs syndrome. CHIEF COMPLAINT Fatigue, headache, cold symptoms. HISTORY OF PRESENT ILLNESS Amira is a very pleasant 53-year-old female with a history of restless legs syndrome, self-reported longstanding anemia, and asthma, who is here today at the request of Dr. Robles for evaluation of iron deficiency. The patient also reports a remote history of a duodenal adenocarcinoma, as well as celiac disease. She reports that the duodenal adenocarcinoma had been diagnosed in around 2003 in [place]. She had undergone a Whipple procedure at the [facility], but she did not require any type of adjuvant therapy. The patient reports that she has been anemic since childhood, and that she has had longstanding attempts at using oral iron to treat her anemia. She received intravenous iron around the time of her prior surgeries at the [facility], and she also notes further supplemental intravenous iron somewhere between 2010 and 2012 here in [place]. She does recall one particular episode after receiving intravenous iron of rather severe nausea and vomiting that was difficult to control. She reports ongoing issues with fatigue, as well as migraine headaches. She has come down with what she thinks may be a cold or the flu over the past few days. She denies fever, however. REVIEW OF SYSTEMS Otherwise negative on all systems reviewed. PAST MEDICAL HISTORY 1. History of celiac disease. 2. 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 3. Migraine headaches. 4. Asthma. 5. History of anemia, iron deficiency. 6. Restless legs syndrome. CURRENT MEDICATIONS 1. Tylenol p.r.n. 2. Albuterol p.r.n. 3. Vitamin C. 4. Budesonide. 5. Calcium. 6. Vitamin D3. 7. Dexilant. 8. Cymbalta. 9. Iron sulfate or liquid. 10. Lidocaine patch. 11. Creon. 12. Dulera. 13. Phenergan. 14. Pork thyroid. 15. Ultram. 16. Vitamin B complex. 17. Amitriptyline. ALLERGIES 1. ASPIRIN. 2. COUMADIN. 3. IBUPROFEN. 4. SINGULAIR. 5. TORADOL. SOCIAL HISTORY Patient is a nonsmoker. There is no history of illicit drug use. There is no history of alcohol abuse. FAMILY HISTORY Noncontributory. PHYSICAL EXAMINATION VITAL SIGNS: Temperature is 95.7, blood pressure 134/84, heart rate 84, respirations 16, oxygen saturation 98% on room air. GENERAL: Patient is alert and oriented x3, in no apparent distress, sitting in the exam room chair. She is wearing a mask. HEENT: Anicteric sclerae. NEUROLOGIC: Grossly nonfocal. Her gait is normal. EXTREMITIES: No edema, clubbing, or cyanosis. SKIN: Cursory skin exam reveals no concerning rash or lesions. LABORATORY STUDIES Reviewed per the [facility] record. IMAGING None today. ASSESSMENT AND PLAN Iron deficiency, restless legs syndrome. I had a good visit with Ms. Hathaway today. We discussed her medical history as well as current symptoms, to include fatigue and some sleep disturbance due to restless legs syndrome. We discussed that she had recently met with Dr. Robles in Pulmonary, and there was some concern for ongoing iron deficiency as a potential contributor to her restless legs. We reviewed her recent laboratory studies. She is not currently anemic, but she does have a ferritin of 15, indicative of iron deficiency. She does seem to be reliably taking her oral iron, but historically she has not been able to make much progress. As discussed, it may be reasonable to attempt one to two weekly doses of Venofer at 200 mg apiece to see if we cannot improve her iron status and therefore improve her restless legs. We will also work to get prior records to see what medication had been given prior that could potentially have been causing nausea, although this would be uncommon. We will also work to get records for her reported history of duodenal adenocarcinoma from the [facility]. If she does end up getting intravenous iron supplementation, I would plan for her to go back to the lab two to three weeks after her second infusion and have repeat labs to include a CBC, iron panel, and ferritin. I would plan to see her thereafter to review the results. All questions answered today. I spent a total of 45 minutes of time face to face with the patient today, and 40 minutes of this was spent in direct counseling and coordination of care. GABRIELE
[2018-08-26 13:50] VITALS: BP 132/98
[2018-08-26] MEDS: NS(*) 0.9% 100 ML BAG 100 ML IVPB PRN (14:30)
[2018-08-26 15:36] VITALS: BP 132/78
[2018-09-09 08:38] VITALS: BP 123/39
[2018-09-09] MEDS: NS(*) 0.9% 100 ML BAG 100 ML IVPB PRN (09:08)
[2018-09-09 10:31] VITALS: BP 128/78
[2018-09-29 10:24] VITALS: BP 134/69
[2018-09-29 10:36] LABS: PLATELET COUNT, AUTOMATED 350 K/uL (150-450)
[~2018-09-30 12:54] MED LIST changes: +ALB18R INH; +AZEL137S NS; +CALC600T63 PO; +CHOL10005 PO; +DEXTROSE 5%(*) 100 ML BAG 100 ML IVPB PRN; +FERR220S6 PO; +IRON SUCROSE 100 MG/5 ML VIAL 200 MG in NS(*) 0.9% 100 ML BAG 100 ML IVPB ONE; +LIDO700A19; +LIDOCAINE/SOD BICARB 8.4% SYR ID PRN; +ONDANSETRON 4 MG/2 ML VIAL IVP ONE; +ONDANSETRON 4 MG/2 ML VIAL IVP PRN
[2018-09-30 12:56] VITALS: BP 128/77
--- NOTE | 2018-10-13 21:25 | ONCOLOGY FOLLOW UP NOTE ---
EVENT DATE: September 30, 2018 REASON FOR FOLLOWUP Concern for iron deficiency, restless leg syndrome. CHIEF COMPLAINT Fatigue. INTERIM HISTORY Ms. Hathaway returns to clinic for a followup visit today. Since our last visit, she has received intravenous iron supplementation. Her infusions went well. She, unfortunately, reports no significant improvement in her symptoms. She continues to be tired, and she does have some ongoing restless leg syndrome. She also reports some occasional abdominal discomfort, some in the right upper quadrant. She reports no nausea or changes in bowel habits. She has had no new urinary symptoms. She is here to review her followup labs. REVIEW OF SYSTEMS Otherwise negative, and all systems reviewed. PAST MEDICAL HISTORY 1. History of celiac disease. 2. 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 3. Migraine headaches. 4. Asthma. 5. History of anemia, iron deficiency. 6. Restless legs syndrome. CURRENT MEDICATIONS 1. Tylenol p.r.n. 2. Albuterol p.r.n. 3. Vitamin C. 4. Budesonide. 5. Calcium. 6. Vitamin D3. 7. Dexilant. 8. Cymbalta. 9. Iron sulfate or liquid. 10. Lidocaine patch. 11. Creon. 12. Dulera. 13. Phenergan. 14. Pork thyroid. 15. Ultram. 16. Vitamin B complex. 17. Amitriptyline. ALLERGIES 1. ASPIRIN. 2. COUMADIN. 3. IBUPROFEN. 4. SINGULAIR. 5. TORADOL. SOCIAL HISTORY Patient is a nonsmoker. There is no history of illicit drug use. There is no history of alcohol abuse. FAMILY HISTORY Noncontributory. VITAL SIGNS Temperature is 96.9, blood pressure 128/77, heart rate is 86, respirations 16, oxygen saturation is 98% on room air. Weight is 74.3 kg. PHYSICAL EXAMINATION GENERAL: Patient is alert and oriented times three, in no apparent distress, sitting in the exam room chair. She is interactive and pleasant. HEENT: Anicteric sclerae. NEUROLOGIC: Grossly nonfocal, and her gait is normal. ABDOMEN: Some tenderness with deep breath in the right upper quadrant. There are no palpable masses. Bowel sounds are present. SKIN: No concerning rash or lesion. LABORATORY STUDIES Reviewed per the [facility] record. IMAGING None today. ASSESSMENT AND PLAN Iron deficiency, restless leg syndrome. We spent time today reviewing Ms. Hathaway's recent experience with iron supplementation as well as her followup laboratory studies. From yesterday, her CBC is normal with the exception of a slightly elevated eosinophil count. Chemistries reveal slight elevation of the AST and ALT. Her ferritin is up to 96. Serum iron is 148. Total iron-binding capacity is 334. Percent saturation is 44.3. As discussed, she does appear to be iron replete at this point, but unfortunately, she is not feeling much different. We discussed our plan for followup of her iron deficiency as well as her abdominal symptoms and exam findings. I have recommended that she go for an abdomen ultrasound to evaluate her liver in particular given her oncologic history. She agrees to go for the ultrasound. As discussed, we will be back in touch with the results. If there are concerning findings, a CT scan would likely be next step. All questions answered today. I will plan to see the patient upon an upcoming visit to [place] where she could potentially be seen by a nurse practitioner here. Timing of followup will depend in part on ultrasound results. All questions answered today. GABRIELE
== END 2018-11-02 ==
LOC: ONC 12:54
PROVIDERS: ATTEND Internal Medicine Medical Oncology
DX: E61.1 Iron deficiency (principal); G25.81 Restless legs syndrome; R53.83 Other fatigue; R51 Headache
CPT/HCPCS: 36415; 82728; 83540; 83550; 85025; 96365; 96375; 99202; 99212; J1756; J2405; J7050; 82040; 82247; 82310; 82374; 82435; 82565; 82947; 84075; 84132; 84155; 84295; 84450; 84460; 84520

== ENCOUNTER → 2018-10-02 | Outpatient (CLI) | payer OTHER ==
[2015-12-22 09:28] VITALS: BMI 25.7
[~2018-10-02] MED LIST changes: -DEXTROSE 5%(*) 100 ML BAG 100 ML IVPB PRN; -IRON SUCROSE 100 MG/5 ML VIAL 200 MG in NS(*) 0.9% 100 ML BAG 100 ML IVPB ONE; -LIDOCAINE/SOD BICARB 8.4% SYR ID PRN; -ONDANSETRON 4 MG/2 ML VIAL IVP ONE; -ONDANSETRON 4 MG/2 ML VIAL IVP PRN
--- NOTE | 2018-10-02 11:54 | RADIOLOGY IMAGING REPORT ---
FACILITY: [facility] [place] PATIENT NAME: Sheyla Hathaway : 1965 MR: [id number] V: [id number] EXAM DATE: ORDERING PHYSICIAN: CURLY BRIDGES TECHNOLOGIST: Location: [facility] Patient: Sheyla Hathaway : 1965 Visit/Account:[id number] Date of Sevice: 10/02/2018 EXAMINATION: Abdominal ultrasound complete HISTORY: Whipple procedure with pylorus sparing duodenal cancer, cholecystectomy, right upper quadr ant pain COMPARISON: None. FINDINGS: Gallbladder: Surgically absent Liver: Negative. Common duct: Unremarkable measuring two mm. Pancreas: Not well seen due to overlying bowel gas Spleen: Normal in size and echogenicity measuring 6.8 cm in length. Kidneys: Normal in size and echogenicity, the right measures 12 cm in length, and the left 10.7 cm. No hydronephrosis. There is a 2.2 x 2.1 x 0.9 cm ovoid hypoechoic region in the upper pole the righ t kidney. There is a 1.6 cm hypoechoic region in the mid pole the left kidney Upper abdominal aorta and IVC: Negative. Ascites: None. IMPRESSION: Postsurgical changes from a cholecystectomy. Period no evidence of ductal dilatation. Pancreas not well seen due to overlying bowel gas There is a 2.2 x 2.1 x 0.9 cm ovoid hypoechoic region upper pole the right kidney. This could repres ent a cyst although acoustic enhancement not appreciated and this could represent a hypoechogenic mas s. Similar findings seen in the midpole the left kidney measuring 1.6 cm. This could be further aleksey luated with CT or MR. Report Dictated By: Ewa Ballard MD at 10/02/2018 11:45 AM Report E-Signed By: Ewa Ballard MD at 10/02/2018 11:49 AM WSN:[email or web address]
== END ==
LOC: US 01:01
PROVIDERS: ATTEND Internal Medicine Medical Oncology
DX: Z90.49 Acquired absence of other specified parts of digestive tract (principal); R94.5 Abnormal results of liver function studies
CPT/HCPCS: 76700

== ENCOUNTER → 2018-11-12 | Outpatient (CLI) | payer OTHER ==
[2015-12-22 09:28] VITALS: BMI 25.7
[~2018-11-12] MED LIST changes: +GADOBENATE 529MG/1ML 15ML VIAL IVP ONE; +NS(*) 0.9% 50 ML BAG 50 ML ONE; -TRAZ50TA34 PO; +TRAZ50TA52 PO
--- NOTE | 2018-11-12 09:54 | RADIOLOGY IMAGING REPORT ---
FACILITY: [facility] PATIENT NAME: Sheyla Hathaway : 1965 MR: [id number] V: [id number] EXAM DATE: ORDERING PHYSICIAN: CHITRA SHEPARD TECHNOLOGIST: Location: [facility] Patient: Sheyla Hathaway : 1965 Visit/Account:[id number] Date of Sevice: 11/12/2018 MR ABDOMEN W & W/O CON HISTORY: Kidney lesions, abdominal pain ADDITIONAL HISTORY: None. TECHNIQUE: TECHNIQUE: Multiplanar multisequence magnetic resonance imaging of the abdomen with and without intravenous contrast. CONTRAST: 15 mL of MultiHance COMPARISON: Abdomen ultrasound October 02, 2018 FINDINGS: Visualized lung bases: Grossly unremarkable. Liver: Negative. Gallbladder: Surgically absent Bile ducts: Nondistended and unremarkable. Spleen: Negative. Adrenal glands: Negative. Pancreas: Partial proximal pancreatectomy is present Kidneys: No demonstration of a renal mass or hydronephrosis Vessels/spaces/nodes: No bulky adenopathy or ascities. Visualized GI: There appears to be a small hiatal hernia there are postsurgical changes from a Whippl e procedure. No evidence of bowel obstruction Bones/soft tissues: Unremarkable. IMPRESSION: Postsurgical changes from a Whipple procedure No evidence of renal mass Suggestion of a small hiatal hernia Report Dictated By: Ewa Ballard MD at 11/12/2018 9:36 AM Report E-Signed By: Ewa Ballard MD at 11/12/2018 9:51 AM WSN:[email or web address]
== END ==
LOC: MRI 07:32
PROVIDERS: ATTEND Nurse Practitioner
DX: N28.89 Other specified disorders of kidney and ureter (principal)
CPT/HCPCS: 74183; A9577; J7050